=== PATIENT | male | born 1955 | race Asian ===

== ENCOUNTER 2017-05-09 11:32 | Inpatient (IN) | payer MEDICAID ==
[~2017-05-09] VITALS: Ht 172.7 cm; Wt 62.2 kg
[2017-05-09] MEDS ORDERED: SODIUM CHLORIDE 0.9% 1,000ML IVBOLUS ONE (12:00)
[2017-05-09] MEDS ORDERED: ONDANSETRON ODT 4 MG PO ONE (12:00)
[2017-05-09] MEDS ORDERED: SODIUM CHLORIDE FLUSH 10ML SYR IVF ONE (12:00)
[2017-05-09] MEDS ORDERED: HYDROmorphone 1 MG/ML, 1ML IVPush PRN (12:00)
[2017-05-09 12:17] LABS: BASOPHILS % (AUTO) 1 % (0-1); EOSINOPHILS # (AUTO) 0.03 x10^3/uL (0-0.4); EOSINOPHILS % (AUTO) 0 % (1-7); LYMPHOCYTES # (AUTO) 1.14 x10^3/uL (1-3.4); LYMPHOCYTES % (AUTO) 14 % (22-44); MD NO; MEAN CORPUSCULAR HEMOGLOBIN 29.2 pg (27.5-34.5); MEAN CORPUSCULAR HGB CONC 33.4 g/dL (33.2-36.2); MEAN CORPUSCULAR VOLUME 87.5 fL (81-97); MEAN PLATELET VOLUME 9.1 fL (7.4-10.4); MONOCYTES # (AUTO) 0.62 x10^3/uL (0.2-0.8); MONOCYTES % (AUTO) 8 % (2-9); NEUTROPHILS # (AUTO) 6.29 x10^3/uL (1.8-6.8); NEUTROPHILS % (AUTO) 77 % (42-75); PLATELET COUNT 204 x10^3/uL (130-400); RED BLOOD COUNT 5.93 x10^6/uL (4.38-5.82); RED CELL DISTRIBUTION WIDTH 14.4 % (9.4-14.8)
[2017-05-09] MEDS ORDERED: ONDANSETRON ODT 4 MG ONE (12:21)
[2017-05-09] MEDS ORDERED: HYDROmorphone 1 MG/ML, 1ML ONE (12:22)
[2017-05-09 12:23] LABS: INTERNATIONAL NORMALIZED RATIO 1.08 (0.93-1.1); PROTHROMBIN TIME 11.2 Seconds (9.6-11.5)
[2017-05-09 12:25] LABS: ALBUMIN 3.5 g/dL (3.4-5.0); ANION GAP 10 mmol/L (5-15); CALCIUM 8.7 mg/dL (8.5-10.1); CHLORIDE 105 mmol/L (98-107); CREATININE 1.72 mg/dL (0.7-1.3)
[2017-05-09] MEDS ORDERED: PLEASE ENTER ALLERGIES MC SCH (12:30)
[2017-05-09] MEDS ORDERED: HYDROmorphone 2 MG/ML, 1ML ONE (14:36)
[2017-05-09] MEDS ORDERED: FURO40TA6 PO (15:10)
[2017-05-09] MEDS ORDERED: HEPARIN 25,000 UNITS/500ML PMX 500 ML ONE (15:30)
[2017-05-09] MEDS ORDERED: HEPARIN 5,000 UNITS/ML, 1ML IV ONE (15:30)
[2017-05-09] MEDS ORDERED: HEPARIN 5,000 UNITS/ML, 1ML IV PRN (15:30)
[2017-05-09] MEDS ORDERED: HEPARIN 25,000 UNITS/500ML PMX 500 ML IV PRN (15:30)
[2017-05-09] MEDS ORDERED: HEPARIN 5,000 UNITS/ML, 1ML ONE (15:32)
[2017-05-09] MEDS ORDERED: THROMBIN 20,000 UNIT VIAL TP ONE (15:58)
[2017-05-09] MEDS ORDERED: EPINEPHRINE 1 MG/ML, 1ML ONE (15:58)
[2017-05-09] MEDS ORDERED: PROTAMINE SULFATE 10 MG/ML, 5ML ONE (15:58)
[2017-05-09] MEDS ORDERED: BUPIVACAINE/PF 0.5% ONE (15:58)
[2017-05-09] MEDS ORDERED: BACITRACIN 50,000 UNIT ONE (15:58)
[2017-05-09] MEDS ORDERED: HEPARIN 1,000 UNITS/ML, 10ML ONE (15:58)
[2017-05-09] MEDS ORDERED: LABETALOL 5MG/ML, 20ML IVPush PRN (16:30)
[2017-05-09] MEDS ORDERED: NICOTINE 7 MG/24 HR PATCH.TD24 TD SCH (16:30)
[2017-05-09] MEDS ORDERED: ONDANSETRON 2MG/ML, 2ML IVPush PRN (16:30)
[2017-05-09] MEDS: morphine SULFATE 10 MG/ML, 1ML IVPush PRN ×2 (18:38→21:34)
[2017-05-09 19:15] VITALS: BP 107/65
[2017-05-09] MEDS: D5%-LACTATED RINGERS 1,000 ML IV SCH (20:11)
[2017-05-09] MEDS: METOPROLOL 1 MG/ML, 5ML IVPush SCH (20:11)
[2017-05-10] MEDS: morphine SULFATE 10 MG/ML, 1ML IVPush PRN (01:02)
[2017-05-10] MEDS: METOPROLOL 1 MG/ML, 5ML IVPush SCH ×2 (02:00→07:58)
[2017-05-10 02:47] VITALS: BP 93/53
[2017-05-10 05:17] LABS: BASOPHILS # (AUTO) 0.05 x10^3/uL (0-0.1); BASOPHILS % (AUTO) 1 % (0-1); EOSINOPHILS # (AUTO) 0.03 x10^3/uL (0-0.4); EOSINOPHILS % (AUTO) 0 % (1-7); LYMPHOCYTES # (AUTO) 1.04 x10^3/uL (1-3.4); LYMPHOCYTES % (AUTO) 14 % (22-44); MD NO; MEAN CORPUSCULAR HEMOGLOBIN 29.3 pg (27.5-34.5); MEAN CORPUSCULAR HGB CONC 33.5 g/dL (33.2-36.2); MEAN CORPUSCULAR VOLUME 87.5 fL (81-97); MEAN PLATELET VOLUME 9.2 fL (7.4-10.4); MONOCYTES # (AUTO) 0.54 x10^3/uL (0.2-0.8); MONOCYTES % (AUTO) 7 % (2-9); NEUTROPHILS # (AUTO) 5.81 x10^3/uL (1.8-6.8); NEUTROPHILS % (AUTO) 78 % (42-75); PLATELET COUNT 177 x10^3/uL (130-400); RED BLOOD COUNT 5.24 x10^6/uL (4.38-5.82); RED CELL DISTRIBUTION WIDTH 14.1 % (9.4-14.8)
[2017-05-10 05:29] LABS: CHLORIDE 109 mmol/L (98-107)
[2017-05-10 05:34] LABS: ANION GAP 11 mmol/L (5-15); CALCIUM 8.4 mg/dL (8.5-10.1); CREATININE 0.98 mg/dL (0.7-1.3)
[2017-05-10] MEDS: D5%-LACTATED RINGERS 1,000 ML IV SCH (06:00)
[2017-05-10 06:59] LABS: CHLORIDE,URINE RANDOM 50 mmol/L; POTASSIUM,URINE RANDOM 59 mmol/L; SODIUM,URINE RANDOM 52 mmol/L
[2017-05-10] MEDS ORDERED: PANTOPRAZOLE 40 MG IV IVPush SCH (07:30)
[2017-05-10 07:35] VITALS: BP 93/50
[2017-05-10] MEDS ORDERED: ASPIRIN 81 MG TABLET CHEW PO ONE (09:00)
[2017-05-10] MEDS ORDERED: METOPROLOL TARTRATE 25 MG TABLET PO SCH (18:00)
[2017-05-10] MEDS ORDERED: ATORVASTATIN 80 MG TABLET PO SCH (21:00)
== END 2017-05-10 10:19 | disposition left against medical advice (07) | DRG 281 ==
LOC: ED 15:16 → EDIP 15:17 → ED 15:25 → 4WST 17:34
PROVIDERS: ADMIT Hospitalist; ATTEND Hospitalist
DX: I74.3 Embolism and thrombosis of arteries of the lower extremities (principal); I21.4 Non-ST elevation (NSTEMI) myocardial infarction; N17.9 Acute kidney failure, unspecified; E86.0 Dehydration; J44.9 Chronic obstructive pulmonary disease, unspecified; I12.9 Hypertensive chronic kidney disease with stage 1 through stage 4 chronic kidney disease, or unspecified chronic kidney disease; N18.2 Chronic kidney disease, stage 2 (mild); M10.9 Gout, unspecified; F17.210 Nicotine dependence, cigarettes, uncomplicated; Z53.20 Procedure and treatment not carried out because of patient's decision for unspecified reasons; Z53.21 Procedure and treatment not carried out due to patient leaving prior to being seen by health care provider; Z79.899 Other long term (current) drug therapy; Z91.19 Patient's noncompliance with other medical treatment and regimen
CPT/HCPCS: 36415; 71045; 80048; 82040; 82436; 82570; 83735; 84100; 84133; 84300; 84484; 85025; 85520; 85610; 85730; 87205; 93005; 93306; 93922; 93926; 96361; 96365; 96375; J0171; J1170; J1644; J2720; J3490; Q0162; J2270; J7030; J7121